=== PATIENT | male | born 1995 | race Caucasian/White ===

== ENCOUNTER 2021-05-28 12:03 | Emergency (ER) | payer OTHER ==
[~2021-05-28] VITALS: Ht 170.2 cm; Wt 59.1 kg
[2021-05-28 12:15] VITALS: BP 131/76; TEMP 98
[2021-05-28] MEDS ORDERED: STRATTERA 25MG25 MG PO (12:18)
[2021-05-28 13:30] VITALS: PULSE 75
== END 2021-05-28 13:30 | disposition home or self-care (01) ==
LOC: COL.ER 12:03
DX: S61.411A Laceration without foreign body of right hand, initial encounter (principal); F90.9 Attention-deficit hyperactivity disorder, unspecified type; Z79.899 Other long term (current) drug therapy; W26.0XXA Contact with knife, initial encounter